=== PATIENT | female | born 1950 | race Caucasian/White ===

== ENCOUNTER 2019-12-06 09:52 | Outpatient (CLI) | payer MEDICARE, OTHER, SELFPAY ==
[2019-12-06 10:15] VITALS: BP 130/70; PULSE 72; RESP 16; TEMP 36.6; O2SAT 97
[2019-12-06 10:45] VITALS: BP 140/70; PULSE 64; RESP 18; TEMP 36.7; O2SAT 97
[2019-12-06 11:15] VITALS: BP 132/70; PULSE 74; RESP 16; TEMP 36.6; O2SAT 97
[2019-12-06 11:41] LABS: Glucose Point of Care 169 (65-105)
[2019-12-06 12:56] VITALS: BP 155/71; PULSE 64; RESP 18; O2SAT 98
[2019-12-06 14:13] VITALS: BP 138/70; PULSE 68; RESP 14; TEMP 36.7; O2SAT 97
--- NOTE | 2019-12-06 14:15 | PC.NURSE ---
1000 Patient here for first time IV gamma globulins (Privgen). Patient nervous. Reassurance given along with teaching on medication. IV gamma (Privgen) administered see MAR. Tolerated well. 1415 Safe exit of hospital. Will return 2019 at 1330 for monthly infusion. Times lengthen r/t upcoming doctor appointments and transportation.
[2019-12-10 16:57] LABS: Immunoglobulin A 110 mg/dL (70-320); Immunoglobulin G 272 mg/dL (600-1540); Immunoglobulin M 63 mg/dL (50-300)
== END 2019-12-06 09:53 | disposition home or self-care (01) ==
PROVIDERS: PCP Internal Medicine; Visit Provider Internal Medicine Pulmonary Disease
DX: D83.9 Common variable immunodeficiency, unspecified (principal)
CPT/HCPCS: 36415; 82784; 96365; 96366; J1459

== ENCOUNTER 2020-01-17 13:40 | Outpatient (CLI) | payer MEDICARE, OTHER, SELFPAY ==
[2020-01-17 14:20] VITALS: BP 129/70; PULSE 72; RESP 20; TEMP 36.8; O2SAT 91
[2020-01-17] MEDS: IMMUNE GLOBULIN IVPB (14:20)
[2020-01-17 14:50] VITALS: BP 133/71; PULSE 80; RESP 18; O2SAT 92
--- NOTE | 2020-01-17 15:07 | PC.NURSE ---
Patient here for monthly IVIG. Patient reports has to go up on her steroid r/t respiratory issues. Patient does get dyspnic with exertion, but recovers within minutes at rest. Patient is on Oxygen 4l/min.n.c.-she is on it at home also. IV Privigen administration started.
[2020-01-17 15:22] VITALS: BP 150/78; PULSE 68; RESP 16; O2SAT 92
[2020-01-17 17:10] VITALS: BP 140/77; PULSE 82; RESP 20; O2SAT 91
[2020-01-17 18:30] VITALS: BP 154/70; PULSE 88; RESP 22; TEMP 36.1; O2SAT 92
[2020-01-22 14:59] LABS: Immunoglobulin A 113 mg/dL (70-320); Immunoglobulin G 321 mg/dL (600-1540); Immunoglobulin M 62 mg/dL (50-300)
== END 2020-01-17 13:41 | disposition home or self-care (01) ==
LOC: CHSTREATRM 13:44
PROVIDERS: PCP Internal Medicine; Visit Provider Internal Medicine Pulmonary Disease
DX: D83.9 Common variable immunodeficiency, unspecified (principal)
CPT/HCPCS: 36415; 82784; 96365; 96366; J1459

== ENCOUNTER 2020-02-02 12:32 | Outpatient (CLI) | payer MEDICARE, OTHER, SELFPAY ==
--- NOTE | ~2020-02-02 | US_ITS ---
EXAMINATION: US venous doppler LE RT DATE: 02/02/2020 12:59 INDICATION: Right lower limb swelling. TECHNIQUE: Grayscale ultrasound images without and with compression and Doppler ultrasound images of the right lower extremity veins were obtained. COMPARISON: None. FINDINGS: The visualized portions of right common femoral vein, profunda (deep) femoral vein, femoral vein, pop liteal vein, posterior tibial veins, and greater saphenous vein outflow are patent. There is thrombus in a right peroneal vein. IMPRESSION: 1. Acute deep vein thrombosis involving a right peroneal vein. I called this result to Dr. Cheema. Reviewed, dictated and finalized at location B. [facility] POLISHER IMPRESSION: 1. Acute deep vein thrombosis involving a right peroneal vein. I called this r esult to Dr. Cheema.
== END 2020-02-02 12:33 | disposition home or self-care (01) ==
LOC: CHSIMG 12:33
PROVIDERS: PCP Internal Medicine; Visit Provider Internal Medicine Pulmonary Disease
DX: R60.9 Edema, unspecified (principal)
CPT/HCPCS: 93971

== ENCOUNTER 2020-02-14 12:39 | Outpatient (CLI) | payer MEDICARE, OTHER, SELFPAY ==
[2020-02-14 13:15] VITALS: BP 138/78; PULSE 76; RESP 18; TEMP 36.4; O2SAT 93
[2020-02-14] MEDS: IMMUNE GLOBULIN IVPB (13:15)
[2020-02-14 13:43] VITALS: BP 149/88; PULSE 88; RESP 18; O2SAT 93
[2020-02-14 14:50] VITALS: BP 138/78; PULSE 78; RESP 16; O2SAT 93
[2020-02-14 16:22] VITALS: BP 149/80; PULSE 88; RESP 18; TEMP 36.6; O2SAT 94
--- NOTE | 2020-02-14 16:24 | PC.NURSE ---
Patient here for monthly IVIG IV infusion. Patient on home o2 and continues o2 while here. No concerns voiced. Reports on Eliquis for blood clot in left leg now, otherwise feels pretty good. IVIG administered. Patient tolerated it well. Safe exit of hospital. Will return Mar 11, 2020.
== END 2020-02-14 12:40 | disposition home or self-care (01) ==
LOC: CHSTREATRM 12:42
PROVIDERS: PCP Internal Medicine; Visit Provider Internal Medicine Pulmonary Disease
DX: D83.9 Common variable immunodeficiency, unspecified (principal)
CPT/HCPCS: 96365; 96366; J1459